=== PATIENT | male | born 1980 | race African-American/Black ===

== ENCOUNTER 2019-02-02 17:23 | Emergency (ER) | payer OTHER ==
[~2019-02-02] VITALS: Ht 188 cm; Wt 91.2 kg
[2019-02-02] MEDS ORDERED: MOBIC7.5 MG PO (18:37)
[2019-02-02 19:15] VITALS: BP 123/57
== END 2019-02-02 19:15 | disposition home or self-care (01) ==
LOC: ER 17:23
DX: S76.211A Strain of adductor muscle, fascia and tendon of right thigh, initial encounter (principal); X58.XXXA Exposure to other specified factors, initial encounter; Y93.89 Activity, other specified; Y92.89 Other specified places as the place of occurrence of the external cause; Y99.8 Other external cause status